=== PATIENT | female | born 1930 | race Caucasian/White ===

== ENCOUNTER 2018-08-03 15:07 | Observation (INO) | payer MEDICARE, OTHER ==
[~2018-08-03] VITALS: Ht 154.9 cm; Wt 72.6 kg
[~2018-08-03 15:07] MED LIST: ASCO100T4 PO; EZET10TA18 PO; [UNRECOGNIZED DRUG - CODE] PO; [UNRECOGNIZED DRUG - OTHER]
--- NOTE | 2018-08-03 15:38 | EKG ---
[address] [address] Test Date: 2018-08-03 Test Time: 15:33:23 Pat Name: FRENCH RETANA Department: Room: Gender: F Otolaryngology Nurse: : 1930 Requested By: ERIKA PAREDES Order Number: [id number] Reading MD: Bao Inman MD Measurements Intervals [place] Rate: 84 P: 33 W[place]: 160 QRS: -7 QRSD: 88 T: 31 QT: 366 QTc: 436 Interpretive Statements SINUS RHYTHM Electronically Signed On 08-07-2018 13:15:38 CDT by Bao Inman MD
--- NOTE | 2018-08-03 16:11 | RAD ---
PQRS Compliance statement: One or more of the following individualized dose reduction techniques were utilized for this examination: 1. Automated exposure control. 2. Adjustment of the mA and/or kV according to patient size. 3. Use of iterative reconstruction technique. Indication:CONFUSION TECHNIQUE: CT head without IV contrast COMPARISON:None FINDINGS: No pathologic extra-axial or intra-axial fluid collection. Mild diffuse cerebral atrophy. The ventricles and basal cisterns are within normal limits. No acute intracranial bleed. No focal loss of phipps-white differentiation. Periventricular and deep white matter low-attenuation is seen. Orbits are within normal limits. No suspicious calvarial lesion. Visualized paranasal sinuses and mastoid air cells are clear. IMPRESSION: 1. No acute intracranial process. If concern for acute ischemic stroke is high, please consider MRI brain. 2. Mild white matter changes likely secondary to chronic microvascular ischemic disease. Electronically signed by: Boo Peter DO (08/03/2018 4:08 PM) [facility]
--- NOTE | 2018-08-03 16:21 | RAD ---
PORTABLE CHEST 1V Clinical Indication: CONFUSION Comparison: None. Findings: Atherosclerotic and tortuous thoracic aorta. Cardiac size is upper limits of normal. There is minimal linear scarring or atelectasis right costophrenic angle. Lungs are clear. There is no pneumothorax. No pleural effusion is appreciated. 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 There is age indeterminant anterior subcoracoid dislocation of the left humeral head from the glenoid. IMPRESSION: 1. No acute cardiopulmonary process. 2. Age-indeterminate anterior left shoulder dislocation. Electronically signed by: Dmitry Luna MD (08/03/2018 4:18 PM) [id number]
[2018-08-03 16:31] LABS: BASO % 1 % (0-3); EOS % 1 % (0-3); HEMATOCRIT 38.1 % (36.0-47.0); HEMOGLOBIN 12.8 g/dL (12.0-15.5); LYMPH # 0.5 x10^3/uL (1.0-4.8); LYMPH % 8 % (24-48); MEAN CORPUSCULAR HEMOGLOBIN 28 pg (25-35); MEAN CORPUSCULAR HGB CONC 34 g/dL (31-37); MEAN CORPUSCULAR VOLUME 83 fL (79-100); MONO # 0.4 x10^3/uL (0.0-1.1); MONO % 7 % (0-9); NEUT # 5.2 x10^3uL (1.8-7.7); NEUT % 84 % (31-73); PLATELET COUNT 414 x10^3/uL (140-400); RED BLOOD COUNT 4.62 x10^6/uL (3.50-5.40); RED CELL DISTRIBUTION WIDTH 16.6 % (11.5-14.5); WHITE BLOOD COUNT 6.2 x10^3/uL (4.0-11.0)
[2018-08-03 16:47] LABS: ALBUMIN 3.7 g/dL (3.4-5.0); ALBUMIN/GLOBULIN RATIO 1.1 (1.0-1.7); CREATININE 0.7 mg/dL (0.6-1.0); MAGNESIUM 2.1 mg/dL (1.8-2.4); POTASSIUM 3.9 mmol/L (3.5-5.1); TOTAL BILIRUBIN 0.4 mg/dL (0.2-1.0); TOTAL PROTEIN 7.1 g/dL (6.4-8.2)
--- NOTE | 2018-08-03 17:38 | PHYS DOC ---
Past History Past Medical History: Hypertension Past Surgical History: Appendectomy, Knee Replacement Alcohol Use: None Drug Use: None Adult General Chief Complaint Chief Complaint: ALTERED MENTAL STATUS HPI HPI Patient is a 87 year old female who presents with complaining of confusion. Patient is alert and oriented 3 and lives at home by herself but today was not able to member her son for number and when he called her she was confused without slurred speech. She was seen by her primary care physician and sent to ER for evaluation. Patient is alert and oriented in ER and denies any problem. Review of Systems Review of Systems Constitutional: Denies fever or chills [] Eyes: Denies change in visual acuity, redness, or eye pain [] HENT: Denies nasal congestion or sore throat [] Respiratory: Denies cough or shortness of breath [] Cardiovascular: No additional information not addressed in HPI [] GI: Denies abdominal pain, nausea, vomiting, bloody stools or diarrhea [] : Denies dysuria or hematuria [] Musculoskeletal: Denies back pain or joint pain [] Integument: Denies rash or skin lesions [] Neurologic: Denies headache, focal weakness or sensory changes [] Endocrine: Denies polyuria or polydipsia [] All other systems were reviewed and found to be within normal limits, except as documented in this note. Allergies Allergies Allergies Coded Allergies Type Severity Reaction Last Updated Verified codeine Allergy Intermediate 12/27/14 Yes sulfamethoxazole Allergy Intermediate 12/27/14 Yes trimethoprim Allergy Intermediate 12/27/14 Yes ciprofloxacin Allergy Unknown 12/27/14 Yes fentanyl Allergy Unknown 12/27/14 Yes iodine Allergy Unknown 12/27/14 Yes morphine Allergy Unknown 12/27/14 Yes prednisone Allergy Unknown 12/27/14 Yes Physical Exam Physical Exam Constitutional: Well developed, well nourished, no acute distress, non-toxic appearance. [] HENT: Normocephalic, atraumatic Eyes: PERRLA, EOMI, conjunctiva normal, no discharge. [] Neck: Normal range of motion, no tenderness, supple, no stridor. [] Cardiovascular:Heart rate regular rhythm, no murmur [] Lungs & Thorax: Bilateral breath sounds clear to auscultation [] Abdomen: Bowel sounds normal, soft, no tenderness, no masses, no pulsatile masses. [] Skin: Warm, dry, no erythema, no rash. [] Back: No tenderness, no CVA tenderness. [] Extremities: No tenderness, no cyanosis, no clubbing, ROM intact, no edema. [] Neurologic: Alert and oriented X 3, normal motor function, normal sensory function, no focal deficits noted. [] Psychologic: Affect normal, judgement normal, mood normal. [] Current Patient Data Vital Signs Vital Signs Date Time Temp Pulse Resp B/P (MAP) Pulse Ox O2 Delivery O2 Flow Rate FiO2 08/03/18 15:47 97.8 78 16 95 Room Air Lab Results Laboratory Tests Test 08/03/18 15:23 08/03/18 16:15 Glucose (Fingerstick) 102 mg/dL (70-99) H White Blood Count 6.2 x10^3/uL (4.0-11.0) Red Blood Count 4.62 x10^6/uL (3.50-5.40) Hemoglobin 12.8 g/dL (12.0-15.5) Hematocrit 38.1 % (36.0-47.0) Mean Corpuscular Volume 83 fL (79-100) Mean Corpuscular Hemoglobin 28 pg (25-35) Mean Corpuscular Hemoglobin Concent 34 g/dL (31-37) Red Cell Distribution Width 16.6 % (11.5-14.5) H Platelet Count 414 x10^3/uL (140-400) H Neutrophils (%) (Auto) 84 % (31-73) H Lymphocytes (%) (Auto) 8 % (24-48) L Monocytes (%) (Auto) 7 % (0-9) Eosinophils (%) (Auto) 1 % (0-3) Basophils (%) (Auto) 1 % (0-3) Neutrophils # (Auto) 5.2 x10^3uL (1.8-7.7) Lymphocytes # (Auto) 0.5 x10^3/uL (1.0-4.8) L Monocytes # (Auto) 0.4 x10^3/uL (0.0-1.1) Eosinophils # (Auto) 0.0 x10^3/uL (0.0-0.7) Basophils # (Auto) 0.0 x10^3/uL (0.0-0.2) Sodium Level 133 mmol/L (136-145) L Potassium Level 3.9 mmol/L (3.5-5.1) Chloride Level 96 mmol/L (98-107) L Carbon Dioxide Level 31 mmol/L (21-32) Anion Gap 6 (6-14) Blood Urea Nitrogen 16 mg/dL (7-20) Creatinine 0.7 mg/dL (0.6-1.0) Estimated GFR (Cockcroft-Gault) 79.0 BUN/Creatinine Ratio 23 (6-20) H Glucose Level 91 mg/dL (70-99) Calcium Level 9.0 mg/dL (8.5-10.1) Magnesium Level 2.1 mg/dL (1.8-2.4) Total Bilirubin 0.4 mg/dL (0.2-1.0) Aspartate Amino Transferase (AST) 23 U/L (15-37) Alanine Aminotransferase (ALT) 24 U/L (14-59) Alkaline Phosphatase 93 U/L (46-116) Creatine Kinase 302 U/L (26-192) H Troponin I Quantitative < 0.017 ng/mL (0-0.055) Total Protein 7.1 g/dL (6.4-8.2) Albumin 3.7 g/dL (3.4-5.0) Albumin/Globulin Ratio 1.1 (1.0-1.7) EKG EKG EKG interpreted by me. EKG at 1532 showed normal sinus rhythm at rate of 84 left galdamez axis, no acute ST and T-wave abnormalities. Radiology/Procedures Radiology/Procedures [address] [address] IMAGING REPORT Signed PATIENT: FRENCH RETANA ACCOUNT: [id number] : 1930 LOCATION: ER AGE: 87 SEX: F EXAM STATUS: REG ER ORD. PHYSICIAN: ERIKA PAREDES MD REASON: altered level of consciousness PROCEDURE: PORTABLE CHEST 1V PORTABLE CHEST 1V Clinical Indication: CONFUSION Comparison: None. Findings: Atherosclerotic and tortuous thoracic aorta. Cardiac size is upper limits of normal. There is minimal linear scarring or atelectasis right costophrenic angle. Lungs are clear. There is no pneumothorax. No pleural effusion is appreciated. 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 There is age indeterminant anterior subcoracoid dislocation of the left humeral head from the glenoid. IMPRESSION: 1. No acute cardiopulmonary process. 2. Age-indeterminate anterior left shoulder dislocation. Electronically signed by: Dmitry Luna MD (08/03/2018 4:18 PM) [id number] DICTATED AND SIGNED BY: DMITRY LUNA MD DATE: 08/03/18 6130 CC: SABRINA ROBLEDO MD; ERIKA PAREDES MD ~[place] [address] IMAGING REPORT Signed PATIENT: FRENCH RETANA ACCOUNT: [id number] : 1930 LOCATION: ER AGE: 87 SEX: F EXAM STATUS: REG ER ORD. PHYSICIAN: ERIKA PAREDES MD REASON: altered level of consciousness PROCEDURE: CT HEAD WO CONTRAST PQRS Compliance statement: One or more of the following individualized dose reduction techniques were utilized for this examination: 1. Automated exposure control. 2. Adjustment of the mA and/or kV according to patient size. 3. Use of iterative reconstruction technique. Indication:CONFUSION TECHNIQUE: CT head without IV contrast COMPARISON:None FINDINGS: No pathologic extra-axial or intra-axial fluid collection. Mild diffuse cerebral atrophy. The ventricles and basal cisterns are within normal limits. No acute intracranial bleed. No focal loss of phipps-white differentiation. Periventricular and deep white matter low-attenuation is seen. Orbits are within normal limits. No suspicious calvarial lesion. Visualized paranasal sinuses and mastoid air cells are clear. IMPRESSION: 1. No acute intracranial process. If concern for acute ischemic stroke is high, please consider MRI brain. 2. Mild white matter changes likely secondary to chronic microvascular ischemic disease. Electronically signed by: Boo Peter DO (08/03/2018 4:08 PM) [facility] DICTATED AND SIGNED BY: BOO PETER DO DATE: 08/03/18 9647 CC: SABRINA ROBLEDO MD; ERIKA PAREDES MD ~ Course & Med Decision Making Course & Med Decision Making Pertinent Labs and Imaging studies reviewed. (See chart for details) Evaluation of patient in ER showed 87-year-old female patient with episodes of confusion foreshortened that his at arrival to ER. Patient had unremarkable physical exam and NIH scale of 0. Patient had chronic left shoulder dislocation. Labs and CT head didn't show acute finding. UA is pending. Dr. Robledo accepted admission at 1730. Dragon Disclaimer Dragon Disclaimer This electronic medical record was generated, in whole or in part, using a voice recognition dictation system. Departure Departure: Impression: Primary Impression: Altered level of consciousness Disposition: ADMITTED INPATIENT (at 1732) Admitting Physician: Sabrina Robledo (accepted admission at 1730) Condition: IMPROVED Referrals: SABRINA ROBLEDO MD (PCP) NIHSS - ED NIH Stroke Scale: NIH Stroke Scale Response (Comments) Value Level of Consciousness: 0 Alert/Responsive 0 LOC Questions: 0 Answers both correctly 0 LOC Commands: 0 Performs both tasks 0 Best Gaze: 0 Normal 0 Visual: 0 No visual loss 0 Facial Palsy: 0 Normal, symmetrical 0 Motor - Left Arm 0 No drift 0 Motor - Right Arm 0 No drift 0 Motor - Left Leg 0 No drift 0 Motor: Right Leg 0 No drift 0 Limb Ataxia: 0 Absent 0 Sensory: 0 No loss 0 Best Language: 0 Normal 0 Dysathria: 0 Normal 0 Extinction and Inattention: 0 Normal 0 Total 0 ERIKA PAREDES MD Aug 03, 2018 17:38
[2018-08-03 18:51] VITALS: BP 152/84
[2018-08-03 19:08] LABS: BACTERIA,URINE 0 /HPF (0-FEW); BILIRUBIN,URINE NEG (NEG); CLARITY,URINE CLEAR; COLOR,URINE STRAW; GLUCOSE,URINE NEG (NEG); NITRITE,URINE NEG (NEG); RBC,URINE 0 /HPF (0-2); SQUAMOUS EPITHELIAL CELL,UR OCC /LPF; UROBILINOGEN,URINE 0.2 mg/dL (0.2 mg/dL); WBC,URINE 0 /HPF (0-4)
[2018-08-03] MEDS ORDERED: LEVO50TA PO (21:02)
[2018-08-03] MEDS ORDERED: ALEN70TA3 PO (21:02)
[2018-08-03] MEDS ORDERED: OMEP20TA63 PO (21:02)
[2018-08-03] MEDS ORDERED: ALPR0.5T PO (21:02)
[2018-08-03] MEDS ORDERED: AMLO5TAB4 PO (21:02)
[2018-08-03] MEDS ORDERED: ATOR10TA PO (21:02)
[2018-08-03] MEDS ORDERED: DOCU-109 PO (21:02)
[2018-08-03] MEDS ORDERED: POLY17PO5 PO (21:02)
[2018-08-03] MEDS ORDERED: FURO-69 PO (21:02)
[2018-08-03] MEDS: ALPRAZolam 0.5 MG TABLET PO SCH (22:32)
[2018-08-03 22:59] VITALS: BP 127/78
[2018-08-04 05:03] VITALS: BP 123/74
[2018-08-04] MEDS: ALPRAZolam 0.5 MG TABLET PO SCH (07:49)
[2018-08-04 07:50] VITALS: BP 123/74
[2018-08-04] MEDS ORDERED: ASPIRIN 81 MG TAB.CHEW PO SCH (08:00)
[2018-08-04] MEDS ORDERED: LOSARTAN 50 MG TABLET. PO SCH (09:00)
--- NOTE | 2018-08-04 12:59 | CONS ---
DATE OF CONSULTATION: 08/03/2018 NEUROLOGY CONSULT REFERRING PHYSICIAN: Dr. Prescott. REASON FOR CONSULTATION: Acute mental status changes. HISTORY OF PRESENT ILLNESS: This is an 87-year-old right-handed female, who was admitted through Emergency Room on account of a sudden onset of confusion. According to the patient's son, she tried to call in this morning and she forgot his phone number. The patient denies any headaches, visual disturbances, nausea, vomiting, chest pain, shortness of breath or palpitation, dysarthria, dysphagia or vertigo. Currently, the patient stated she wants to go home and she is back to her baseline. However, she had unsteady gait and she has tendency to fall. She did sustain few falls in the past. She tripped by her cane. On arrival to Emergency Room, her blood pressure was 152/84 and respiratory rate 20. DIAGNOSTIC DATA: Initial nonenhanced head CT scan revealed no acute intracranial process, but showed mild white matter chronic small vessel ischemic disease. PAST MEDICAL HISTORY: Significant for hypertension, hyperlipidemia, obesity, Gastroesophageal reflux disease, urinary urgency, arthritis of the hand, osteoporosis and anxiety. PAST SURGICAL HISTORY: Significant for abdominal surgery, , amputation of the distal finger, bilateral knee replacement and appendectomy. SOCIAL HISTORY: The patient lives at home independently. She denies smoking, alcohol drinking, or illicit drug use. CURRENT MEDICATIONS: Losartan, potassium 50 mg daily, aspirin 81 mg daily, alprazolam 0.5 mg t.i.d. FAMILY HISTORY: Father had hypertension. ALLERGIES: CIPROFLOXACIN, CODEINE, FENTANYL, IODINE, MORPHINE, PREDNISONE, AND SULFA DRUGS. REVIEW OF SYSTEMS: A 10-point review of systems positive for as mentioned above in the history of present illness. PHYSICAL EXAMINATION: GENERAL: A well-developed, well-nourished female, not in acute distress. She weighs 160 pounds. VITAL SIGNS: Blood pressure 152/84, respiratory rate 20, pulse is 90, temperature 97.6, oxygen saturation 94% on room air. HEENT: Normocephalic, atraumatic, otherwise unremarkable. NECK: Supple. Negative for carotid bruit, lymphadenopathy or thyromegaly. LUNGS: Clear to A and P. CARDIOVASCULAR: Regular rate and rhythm, normal S1, S2. No S3, S4, or murmur. ABDOMEN: Soft. Bowel sounds positive. EXTREMITIES: Negative for cyanosis, clubbing, pitting edema. NEUROLOGICAL EXAM: Mental Status: The patient is alert and oriented x 3. The speech is fluent. There is no language dysfunction. Memory, judgment, and abstracting thinking are fair. The patient denies hallucination or delusion. CRANIAL NERVES: Visual barrientos are full. The pupils are reactive to light and accommodation. The extraocular movements are intact. There is no nystagmus. There is no facial motor or sensory deficit. Hearing is intact bilaterally. The palate is elevated symmetrically. Sternocleidomastoid muscles are powerful bilaterally. The patient shrugs his shoulders symmetrically, protrudes her tongue in the midline without fasciculation or atrophy. MOTOR: No focal muscle bulk was seen. The tone is normal. The strength is 4/5 throughout. SENSORY: Examination revealed normal pinprick, light touch, and vibratory and position senses. Deep tendon reflexes were asymmetric and hypoactive with absent Achilles responses. GAIT: The stance is unsteady. The patient uses a walker for ambulation during this hospitalization. LABORATORY DATA: CBC revealed white blood cells of 6.2 thousand, hemoglobin 12.8, hematocrit 38.1, platelet count 414,000. Chemistry revealed sodium 133, potassium 3.9, chloride 96, CO2 of 31, BUN 16, creatinine 0.7, glucose 91, calcium 9, magnesium 2.1. Creatinine kinase is elevated at 302, but troponin level is normal. Urinalysis is negative. IMPRESSION: 1. Possible transient ischemic attack. 2. Multiple medical problems include hypertension, hyperlipidemia, and osteoarthritis of the hands. RECOMMENDATIONS: 1. Continue with current conservative management. 2. Physical therapy evaluation. M Monique WEBER MD DR: HOMERO/zabrina JOB#: [id number] / [id number]
== END 2018-08-04 09:35 | disposition home or self-care (01) ==
LOC: ER 15:07 → 1 SOUTH 17:32 → INTOOBSV 17:32
PROVIDERS: ADMIT Family Medicine; ATTEND Family Medicine
DX: I67.848 Other cerebrovascular vasospasm and vasoconstriction (principal); I10 Essential (primary) hypertension; J45.909 Unspecified asthma, uncomplicated; D64.9 Anemia, unspecified; M81.0 Age-related osteoporosis without current pathological fracture; M19.042 Primary osteoarthritis, left hand; M19.041 Primary osteoarthritis, right hand; K21.9 Gastro-esophageal reflux disease without esophagitis; E78.5 Hyperlipidemia, unspecified; Z90.49 Acquired absence of other specified parts of digestive tract; Z88.8 Allergy status to other drugs, medicaments and biological substances; Z91.041 Radiographic dye allergy status; Z96.653 Presence of artificial knee joint, bilateral; Z82.49 Family history of ischemic heart disease and other diseases of the circulatory system
CPT/HCPCS: 36415; 70450; 71045; 80053; 81001; 82550; 82947; 83735; 84484; 85025; 87040; 93005; 99284; G0378; G0379